=== PATIENT | female | born 1995 | race Two or more races ===

== ENCOUNTER 2023-10-04 14:46 | Outpatient (CLI) | payer OTHER | END 2023-10-04 14:48 | disposition home or self-care (01) | LOC: PRENATAL 14:46 | PROVIDERS: ATTEND Obstetrics & Gynecology Maternal & Fetal Medicine | DX: O35.9XX0 Maternal care for (suspected) fetal abnormality and damage, unspecified, not applicable or unspecified (principal); O35.3XX0 Maternal care for (suspected) damage to fetus from viral disease in mother, not applicable or unspecified; O44.02 Complete placenta previa NOS or without hemorrhage, second trimester; Z3A.22 22 weeks gestation of pregnancy; Z14.8 Genetic carrier of other disease ==

== ENCOUNTER → 2023-11-16 15:08 | Outpatient (CLI) | payer OTHER | END | disposition home or self-care (01) | LOC: PRENATAL 15:08 | PROVIDERS: ATTEND Obstetrics & Gynecology Maternal & Fetal Medicine | DX: O26.849 Uterine size-date discrepancy, unspecified trimester (principal); O36.8199 Decreased fetal movements, unspecified trimester, other fetus; Z3A.28 28 weeks gestation of pregnancy ==

== ENCOUNTER 2024-01-03 10:09 | Outpatient (CLI) | payer OTHER ==
[2024-01-03] MEDS ORDERED: PRENATAL TABLE1 EAC1 PO (13:49)
== END 2024-01-03 10:10 | disposition home or self-care (01) ==
LOC: PRENATAL 10:09
PROVIDERS: ATTEND Obstetrics & Gynecology Maternal & Fetal Medicine
DX: O26.849 Uterine size-date discrepancy, unspecified trimester (principal); O36.8199 Decreased fetal movements, unspecified trimester, other fetus; O41.00X0 Oligohydramnios, unspecified trimester, not applicable or unspecified; Z3A.35 35 weeks gestation of pregnancy

== ENCOUNTER 2024-01-03 12:54 | Inpatient (IN) | payer OTHER ==
[~2024-01-03] VITALS: Ht 160 cm; Wt 2.3 kg
[2024-01-03 12:50] VITALS: BP 117/79
[2024-01-03] MEDS ORDERED: BETAMETHASONE ACETATE,SOD PHOS 30 MG/5 ML ML IM ONE (13:30)
[2024-01-03] MEDS ORDERED: RINGERS SOLUTION,LACTATED 1,000 ML IV SCH (13:30)
[2024-01-03] MEDS ORDERED: AMPICILLIN SODIUM 2,000 MG VIAL IV ONE (13:30)
[2024-01-03] MEDS ORDERED: PRENATAL TABLE1 EAC1 PO (13:49)
[2024-01-03 14:00] LABS: URINE APPEARANCE Clear; URINE BILIRRUBIN Negative (NEGATIVE); URINE BLOOD Negative; URINE COLOR Yellow; URINE GLUCOSE Negative (NEGATIVE); URINE KETONE Negative (NEGATIVE); URINE LEUKOCYTE Trace; URINE NITRATE Negative; URINE PROTEIN Negative (NEGATIVE); URINE UROBILINOGEN 0.2 E.U./dl
[2024-01-03 14:01] LABS: URINE BACTERIA 5005.6 uL (0.0-1933); URINE EPITHELIAL CELLS 31.5 uL (0.0-38.8); URINE RBC 4.7 uL (0.0-20.8); URINE WBC 85.4 uL (0.0-23.2)
[2024-01-03 14:07] LABS: HEMATOCRIT 36.8 % (36.0-45.00); HEMOGLOBIN 11.8 g/dL (12.0-15.00); MEAN CELL VOLUME 75.6 fL (80.00-100.00); MEAN CORPUSCULAR HEMOGLOBIN 24.3 pg (27.00-32.0); MEAN CORPUSCULAR HGB CONC 32.1 g/dl (32.0-36.0); PLATELET COUNT 256 K/uL (150-450); RED BLOOD COUNT 4.87 M/uL (4.00-6.00); RED CELL DISTRIBUTION WIDTH 15.1 % (11.5-14.5)
[2024-01-03 14:21] LABS: URINE CAST 0.15 uL (0.0-1.40)
[2024-01-03 14:24] LABS: INR 0.97; PARTIAL THROMBOPLASTIN TIME 25.1 SECONDS (22.0-34.0); PROTHROMBIN TIME 10.6 SECONDS (9.0-11.5)
[2024-01-03 14:26] LABS: URINE YEAST NEGATIVE /hpf
[2024-01-03 14:29] LABS: ALBUMIN 2.9 gm/dL (3.4-5.0); BILIRUBIN TOTAL 0.25 mg/dL (0.3-1.2); CALCIUM 9.3 mg/dL (8.5-10.1); CREATININE SERUM 0.47 mg/dL (0.55-1.02); GFR 157.78; GLOBULINA 3.9 G/DL (2.4-3.5); POTASSIUM 4.11 mEq/L (3.5-5.1); TOTAL PROTEIN 6.8 gm/dL (6.4-8.2)
[2024-01-03 16:08] VITALS: BP 104/68
[2024-01-03] MEDS ORDERED: AMPICILLIN SODIUM 1,000 MG VIAL IV SCH (17:00)
[2024-01-03] MEDS ORDERED: NIFEDIPINE 30 MG TAB.SA.OSM PO ONE (19:30)
[2024-01-03 20:10] VITALS: BP 106/65
[2024-01-04] VITALS (7 sets, daily range): BP systolic 95–105; BP diastolic 57–69; O2SAT 98–99
[2024-01-04] MEDS ORDERED: BETAMETHASONE ACETATE,SOD PHOS 30 MG/5 ML ML IM NR (13:30)
[2024-01-04] MEDS ORDERED: ACETAMINOPHEN 500 MG GEL..CAP PO ONE (14:00)
[2024-01-05 04:30] VITALS: BP 91/58
[2024-01-05 07:15] VITALS: BP 90/62
[2024-01-05] MEDS ORDERED: MISOPROSTOL 50 MCG TABLET VAG STA ×2 (07:33→11:27)
[2024-01-05 11:52] VITALS: BP 107/72
[2024-01-05 15:27] VITALS: BP 107/68
[2024-01-05] MEDS ORDERED: CEFAZOLIN SODIUM 1,000 MG VIAL IV SCH ×2 (16:30→20:00)
[2024-01-05] MEDS ORDERED: OXYTOCIN 20 UNITS/1000ML RL PIGGYBAG IV ONE (17:00)
[2024-01-05] MEDS ORDERED: ERYTHROMYCIN BASE OPHT 1GM EACH TUBE OP ONE (17:00)
[2024-01-05] MEDS ORDERED: PROMETHAZINE HCL 50 MG/ML AMPUL IM PRN (17:30)
[2024-01-05] MEDS ORDERED: MEPERIDINE HCL/PF 50 MG/ML VIAL IM PRN (17:30)
[2024-01-05] MEDS ORDERED: MORPHINE SULFATE 4 MG/ML VIAL IV ONE (18:40)
[2024-01-05] MEDS ORDERED: MEPERIDINE HCL 50 MG/ML AMPUL IV ONE (20:00)
[2024-01-05 22:21] VITALS: BP 127/80
[2024-01-06 01:29] VITALS: BP 117/72
[2024-01-06 02:05] LABS: HEMATOCRIT 31.9 % (36.0-45.00); MEAN CELL VOLUME 75.3 fL (80.00-100.00); MEAN CORPUSCULAR HEMOGLOBIN 24.5 pg (27.00-32.0); MEAN CORPUSCULAR HGB CONC 32.5 g/dl (32.0-36.0); PLATELET COUNT 222 K/uL (150-450); RED BLOOD COUNT 4.23 M/uL (4.00-6.00)
[2024-01-06 02:09] LABS: HEMOGLOBIN 10.4 g/dL (12.0-15.00); RED CELL DISTRIBUTION WIDTH 14.7 % (11.5-14.5)
[2024-01-06] MEDS ORDERED: OxyCODONE HCL/APAP UD (PERCOCET) PO PRN (06:30)
[2024-01-06] MEDS ORDERED: ACETAMINOPHEN 500 MG GEL..CAP PO PRN (06:30)
[2024-01-06 09:02] VITALS: BP 106/52
[2024-01-06 09:38] LABS: RH POSITIVE
[2024-01-06 16:00] VITALS: BP 108/57
[2024-01-07 00:46] VITALS: BP 92/60
[2024-01-07 08:00] VITALS: BP 120/75
[2024-01-07 16:00] VITALS: BP 100/68
[2024-01-08 00:19] VITALS: BP 98/61
[2024-01-08 08:00] VITALS: BP 104/73
[2024-01-08] MEDS ORDERED: IBUPROFEN800 MG PO (08:05)
== END 2024-01-08 17:49 | disposition home or self-care (01) | DRG 788 ==
LOC: OB/GYN 12:54 → LDR 12:54 → O/R 01-05 16:26 → OB/GYN 01-05 18:59
PROVIDERS: Obstetrics & Gynecology; Specialist; ADMIT Obstetrics & Gynecology; ATTEND Obstetrics & Gynecology
PROC: 4A1HXCZ Monitoring of Products of Conception, Cardiac Rate, External Approach (ICD-10-PCS; 2024-01-03)
PROC: 3E033VJ Introduction of Other Hormone into Peripheral Vein, Percutaneous Approach (ICD-10-PCS; 2024-01-05)
PROC: 3E0P7VZ Introduction of Hormone into Female Reproductive, Via Natural or Artificial Opening (ICD-10-PCS; 2024-01-05)
PROC: 10D00Z1 Extraction of Products of Conception, Low, Open Approach (ICD-10-PCS; principal; 2024-01-05 17:30)
DX: O41.03X0 Oligohydramnios, third trimester, not applicable or unspecified (principal); O36.8330 Maternal care for abnormalities of the fetal heart rate or rhythm, third trimester, not applicable or unspecified; O42.013 Preterm premature rupture of membranes, onset of labor within 24 hours of rupture, third trimester; Z3A.35 35 weeks gestation of pregnancy; Z37.0 Single live birth; Z20.822 Contact with and (suspected) exposure to COVID-19